=== PATIENT | male | born 1995 | race Hispanic/Latino ===

== ENCOUNTER 2021-10-22 07:34 | Emergency (ER) | payer OTHER ==
[~2021-10-22] VITALS: Ht 172.7 cm; Wt 69.5 kg
[2021-10-22] MEDS ORDERED: VALA500T5 PO (07:50)
[2021-10-22 08:23] LABS: BASO % 0.3 % (0.0-1.0); EOS # 0.2 10^3/uL (0.0-0.5); EOS % 1.3 % (0.0-3.0); HEMATOCRIT 46.2 % (42.0-52.0); HEMOGLOBIN 15.5 g/dl (13.5-17.5); LYMPH # 1.3 10^3/uL (1.5-5.0); LYMPH % 8.6 % (24.0-44.0); MEAN CORPUSCULAR HEMOGLOBIN 28.3 pg (27.0-33.0); MEAN CORPUSCULAR HGB CONC 33.5 g/dl (32.0-36.5); MEAN CORPUSCULAR VOLUME 84.5 fl (80.0-96.0); MONO % 6.6 % (2.0-8.0); NEUTROPHILS # 12.1 10^3/uL (1.5-8.5); NEUTROPHILS % 82.9 % (36.0-66.0); PLATELET COUNT, AUTOMATED 191 10^3/uL (150-450); RED BLOOD COUNT 5.47 10^6/uL (4.30-6.10); WHITE BLOOD COUNT 14.6 10^3/uL (4.0-10.0)
[2021-10-22 08:42] LABS: ALBUMIN 3.8 GM/DL (3.2-5.2); ALT/SGPT 47 U/L (12-78); BILIRUBIN,DIRECT 0.2 MG/DL (0.0-0.2); BILIRUBIN,TOTAL 0.8 MG/DL (0.2-1.0); BLOOD UREA NITROGEN 18 MG/DL (7-18); CALCIUM LEVEL 9.1 MG/DL (8.5-10.1); CARBON DIOXIDE LEVEL 26 MEQ/L (21-32); CHLORIDE LEVEL 111 MEQ/L (98-107); CREATININE FOR GFR 0.88 MG/DL (0.70-1.30); ETHYL ALCOHOL (ETHANOL) < 0.003 % (0.000-0.010); GLOMERULAR FILTRATION RATE > 60.0 (>60); GLUCOSE, FASTING 110 MG/DL (70-100); POTASSIUM SERUM 3.8 MEQ/L (3.5-5.1); SODIUM LEVEL 142 MEQ/L (136-145); TOTAL PROTEIN 7.3 GM/DL (6.4-8.2)
[2021-10-22] MEDS ORDERED: ISOVUE-370 76% 100ML VIAL As Ordered ONE (09:01)
[2021-10-22] MEDS ORDERED: ONDA4TAB6 PO (09:44)
[2021-10-22 09:53] VITALS: BP 118/59
== END 2021-10-22 09:58 | disposition home or self-care (01) ==
LOC: M ED 07:34 → EDBD 07:34 → M ED 09:58
DX: K52.9 Noninfective gastroenteritis and colitis, unspecified (principal); B00.9 Herpesviral infection, unspecified
CPT/HCPCS: 36415; 74021; 74177; 80048; 80076; 82077; 85025; 99284; Q9967

== ENCOUNTER 2021-12-28 21:19 | Emergency (ER) | payer OTHER ==
[~2021-12-28] VITALS: Ht 172.7 cm; Wt 63.6 kg
[~2021-12-28 21:19] MED LIST: ONDA4TAB6 PO; VALA500T5 PO
[2021-12-29 08:27] LABS: BASO # 0.1 10^3/uL (0.0-0.2); BASO % 0.9 % (0.0-1.0); EOS # 0.2 10^3/uL (0.0-0.5); EOS % 3.1 % (0.0-3.0); HEMATOCRIT 43.5 % (42.0-52.0); HEMOGLOBIN 14.7 g/dl (13.5-17.5); LYMPH # 2.4 10^3/uL (1.5-5.0); LYMPH % 35.4 % (24.0-44.0); MEAN CORPUSCULAR HEMOGLOBIN 28.5 pg (27.0-33.0); MEAN CORPUSCULAR HGB CONC 33.8 g/dl (32.0-36.5); MEAN CORPUSCULAR VOLUME 84.5 fl (80.0-96.0); MONO # 0.6 10^3/uL (0.0-0.8); NEUTROPHILS # 3.5 10^3/uL (1.5-8.5); NEUTROPHILS % 51.3 % (36.0-66.0); PLATELET COUNT, AUTOMATED 199 10^3/uL (150-450); RED BLOOD COUNT 5.15 10^6/uL (4.30-6.10); WHITE BLOOD COUNT 6.9 10^3/uL (4.0-10.0)
[2021-12-29 09:15] LABS: BLOOD UREA NITROGEN 17 MG/DL (7-18); CALCIUM LEVEL 9.4 MG/DL (8.5-10.1); CARBON DIOXIDE LEVEL 29 MEQ/L (21-32); CHLORIDE LEVEL 110 MEQ/L (98-107); CREATININE FOR GFR 0.86 MG/DL (0.70-1.30); FREE T4 1.22 NG/DL (0.76-1.46); GLOMERULAR FILTRATION RATE > 60.0 (>60); GLUCOSE, FASTING 100 MG/DL (70-100); MAGNESIUM LEVEL 2.1 MG/DL (1.8-2.4); POTASSIUM SERUM 4.1 MEQ/L (3.5-5.1); SODIUM LEVEL 143 MEQ/L (136-145)
[2021-12-29 09:48] VITALS: BP 117/68
== END 2021-12-29 09:50 | disposition home or self-care (01) ==
LOC: M ED 21:19
DX: R55 Syncope and collapse (principal); J45.909 Unspecified asthma, uncomplicated; K52.9 Noninfective gastroenteritis and colitis, unspecified; F17.290 Nicotine dependence, other tobacco product, uncomplicated; F12.10 Cannabis abuse, uncomplicated

== ENCOUNTER 2022-12-09 10:40 | Emergency (ER) | payer OTHER ==
[~2022-12-09] VITALS: Ht 172.7 cm; Wt 68.5 kg
[2022-12-09 12:18] LABS: BASO # 0.1 10^3/uL (0.0-0.2); EOS # 0.1 10^3/uL (0.0-0.5); EOS % 2.2 % (0.0-3.0); HEMATOCRIT 44.9 % (42.0-52.0); HEMOGLOBIN 15.3 g/dl (13.5-17.5); LYMPH # 2.1 10^3/uL (1.5-5.0); MEAN CORPUSCULAR HEMOGLOBIN 29.5 pg (27.0-33.0); MEAN CORPUSCULAR HGB CONC 34.1 g/dl (32.0-36.5); MEAN CORPUSCULAR VOLUME 86.5 fl (80.0-96.0); MONO # 0.6 10^3/uL (0.0-0.8); MONO % 9.4 % (2.0-8.0); NEUTROPHILS # 3.4 10^3/uL (1.5-8.5); NEUTROPHILS % 54.1 % (36.0-66.0); PLATELET COUNT, AUTOMATED 215 10^3/uL (150-450); RED BLOOD COUNT 5.19 10^6/uL (4.30-6.10); WHITE BLOOD COUNT 6.3 10^3/uL (4.0-10.0)
[2022-12-09] MEDS ORDERED: PANTOPRAZOLE 40MG VIAL IV ONE (12:25)
[2022-12-09] MEDS ORDERED: GI COCKTAIL 50ML BTL(HYOSCYAMINE/MAALOX/LIDOCAINE VISCOUS)(1:3:1) PO ONE (12:25)
[2022-12-09] MEDS ORDERED: SUCRALFATE SUSP 1GM/10ML UD PO ONE (12:25)
[2022-12-09 12:44] LABS: LIPASE 26 U/L (12-53)
[2022-12-09 12:47] LABS: ALKALINE PHOSPHATASE 77 U/L (46-116); ALT/SGPT 15 U/L (7.0-40); AST/SGOT 12 U/L (<34); BILIRUBIN,DIRECT 0.4 MG/DL (<0.4); BLOOD UREA NITROGEN 12 MG/DL (9-23); CARBON DIOXIDE LEVEL 28 MMOL/L (20-31); CHLORIDE LEVEL 107 MMOL/L (98-107); CREATININE FOR GFR 0.72 MG/DL (0.70-1.30); GLOMERULAR FILTRATION RATE > 60.0 (>60); GLUCOSE, FASTING 94 MG/DL (60-100); POTASSIUM SERUM 4.2 MMOL/L (3.5-5.1); SODIUM LEVEL 140 MMOL/L (136-145); TOTAL PROTEIN 7.3 G/DL (5.7-8.2)
[2022-12-09] MEDS ORDERED: SUCR1SS PO (14:26)
[2022-12-09 14:38] VITALS: BP 124/62
== END 2022-12-09 14:40 | disposition home or self-care (01) ==
LOC: M ED 10:40
DX: K29.20 Alcoholic gastritis without bleeding (principal)
CPT/HCPCS: 74019; 80048; 80076; 83690; 85025; 96374; 99283; C9113

== ENCOUNTER → 2023-04-18 | Outpatient (CLI) | payer OTHER ==
[~2023-04-18] MED LIST changes: +SUCR1SS PO
== END ==
LOC: M PLALAB 09:06
PROVIDERS: ATTEND Advanced Practice Midwife
DX: Z31.440 Encounter of male for testing for genetic disease carrier status for procreative management (principal)

== ENCOUNTER 2024-05-24 14:23 | Emergency (ER) | payer OTHER, SELFPAY ==
[~2024-05-24] VITALS: Ht 172.7 cm; Wt 65.9 kg
[~2024-05-24 14:23] MED LIST changes: +ACET-897 PO; +ONDA-282 PO; -ONDA4TAB6 PO
[2024-05-24 14:26] VITALS: BP 148/75; TEMP 97.1; O2SAT 99
== END 2024-05-24 17:50 | disposition left against medical advice (07) ==
LOC: M ED 14:23
DX: Z53.21 Procedure and treatment not carried out due to patient leaving prior to being seen by health care provider (principal)

== ENCOUNTER 2024-08-08 16:47 | Emergency (ER) | payer SELFPAY ==
[~2024-08-08] VITALS: Ht 172.7 cm; Wt 68.9 kg
[2024-08-08 16:50] VITALS: BP 136/69; TEMP 97.1; O2SAT 98
== END 2024-08-08 18:25 | disposition home or self-care (01) ==
LOC: M ED 16:47
DX: K52.9 Noninfective gastroenteritis and colitis, unspecified (principal); F17.290 Nicotine dependence, other tobacco product, uncomplicated

== ENCOUNTER → 2024-09-29 | Outpatient (REF) | LOC: M LAB 16:12 | PROVIDERS: ATTEND Family Medicine | DX: Z02.1 Encounter for pre-employment examination (principal) ==